=== PATIENT | female | born 1990 | race Caucasian/White ===

== ENCOUNTER 2018-07-09 11:25 | Inpatient (IN) | payer BC ==
--- NOTE | 2018-07-09 15:07 | US ---
Date of service: 07/09/2018 PROCEDURE: Obstetrical ultrasound examination and limited biophysical profile HISTORY: OB US / BPP COMPARISON: Not available TECHNIQUE: Transabdominal FINDINGS: The examination demonstrates a single live intrauterine gestation in cephalic presentation. The heart rate is 138 beats per minute. A normal anterior fundal placenta is identified. There is no evidence of placenta previa. The cervix is closed and measures 3.1 cm in length. A normal quantity of amniotic fluid is visualized. The JAYLEEN is 9.75 cm. biometry yields a gestational age of 30 weeks 5 days. The EFW is 3351 g. The PERLA by ultrasound is 07/18/2018. Limited review of anatomy demonstrates fluid distending the stomach and urinary bladder. A 4 chamber heart is identified. Two normal kidneys are demonstrated without evidence of hydronephrosis. A three-vessel umbilical cord is identified. The anterior abdominal wall is intact. The S/ D ratio is 2.6, within normal limits. Limited biophysical profile examination yields a score of 8 out of 8. IMPRESSION: Single live intrauterine gestation of approximately 30 weeks 5 days gestational age. Cephalic presentation. heart rate 138. EFW 3351 g. Biophysical profile score is 8 out of 8. No gross anatomic abnormality.
[2018-07-09] MEDS ORDERED: Lactated Ringer's 1,000 ML IV SCH (16:00)
[2018-07-09 16:18] LABS: BASO % 0.2 % (0.0-2.0); EOS # 0.5 K/uL (0.0-0.7); EOS % 6.2 % (0.0-4.0); HEMOGLOBIN 12.6 g/dL (11.0-16.0); LYMPH % 23.9 % (20.0-40.0); MEAN CELL VOLUME 90.1 fL (81.0-99.0); MEAN CORPUSCULAR HEMOGLOBIN 31.5 pg (27.0-31.0); MEAN CORPUSCULAR HGB CONC 34.9 g/dL (33.0-37.0); MEAN PLATELET VOLUME 9.7 fL (7.2-11.7); MONO # 0.9 K/uL (0.0-0.8); MONO % 10.8 % (0.0-10.0); NEUT % 58.9 % (50.0-75.0); NRBC % 0.1 % (0.0-2.0); RBC 4.01 Mil/uL (3.80-5.20); RED CELL DISTRIBUTION WIDTH 15.1 % (11.5-14.5); WHITE BLOOD COUNT 8.5 K/uL (4.8-10.8)
[2018-07-09 16:26] LABS: ALB/GLOB RATIO 1.1 (1.0-2.1); ALBUMIN 3.6 g/dL (3.5-5.0); ALT/SGPT 20 U/L (9-52); AST/SGOT 21 U/L (14-36); BLOOD UREA NITROGEN 6 mg/dL (7-17); GFR AFRICAN-AMERICAN > 60; GFR NON-AFRICAN AMERICAN > 60
[2018-07-09] MEDS ORDERED: Nalbuphine HCL 10 mg/ml Ampule IVP PRN (16:48)
[2018-07-09] MEDS ORDERED: DiphenhydrAMINE 50 mg/ml Inj IVP PRN (16:50)
--- NOTE | 2018-07-09 22:04 | OBHP ---
Datetime: 07/09/2018 22:02 FHR - Baseline A Provider: 140 Membranes, Provider: Intact Contraction Comments Provider: irregular Vital Signs Provider: Reviewed; Within Normal Limits NICHD Variability Prov Fetus A: Moderate 6-25bpm NICHD Accel Fetus A IP Provider: 15X15 FHR Category Provider Fetus A: Category I NICHD Decel Fetus A IP Provider: None Dilatation, Provider: 1 Effacement, Provider: 30 Station, Provider: -3 Datetime: 07/09/2018 13:59 IP Adm Impression: Postterm, intrauterine ; No Active Labor; Intact Membranes IP Adm Impression Other: Decreasing JAYLEEN IP Admit Plan: Admit to unit; Initiate labor induction protocol IP Admit Plan Other: Cervical ripening (Annotations: Data stored by N on behalf of user) Admit Comment, IP Provider: Patient seen and examined at 1228 hours This is a private patient of Dr. Radha Davis 28 y.o. , LMP 10/23/17, PERLA 07/08/18, revised by RACHAEL santana 40w 1d referred for evaluation by Marshall LI due to post dates. (+) AFM; denies LOF, VB, Ctx. Preanatal care: Dr. Davis, patient denies any iss ues. 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 Denies h/o STIs, abnormal Pap PMH: denies PSH: denies NKDA Meds: PNV Soc Hx: denies tobacco, illicit drug or EtOH use. x 3 years. Unemployed Fam Hx: Mother alive 47. Father alive 55; both, no med issues. No known fam h/o cancer P.E.: as above. WD in NAD. Awake, alert, oriented to time, person and place. Pleasant and cooperat len. and her mother present. Assessment: 28 y.o. P0, 40w 1d. Not in labor. Category 1 tracing. Clinically stable. Plan: 1) OB USG/BPP 2) Observe Addendum: 1546 hours - OB ultrasound reviewed: JAYLEEN 9.75cm, Cephalic, fundal placenta, EFW 3351 grams This was discussed with Dr. Davis. Dr. Davis is concerned of decreasing JAYLEEN. To this end, she is recommending induction of labor and delivery. This was presented to the patient and her . The y were given the oportunity to discuss the issue amoungst themselves as well as the opportunity to sp eak wt Dr. Davis. Patient has decided to stay for induciton of labor and delivery. Assessment: 28 y.o. P0, 40w 1d, decreasing JAYLEEN for IOL. GBS (-). Category 1 tracing. It was D/W pa tient the following: cervical ripening, possible pitocin; pain medications. Patient expressed an unde rstanding and agrees. No questions offered. Clinically stable. Plan: 1) Rodrick 2) Regular diet x 1, then 3) NPO 4) IVFs 5) Continuous EFM 6) Admission labs 7) Cervidil 8) Pain meds, upon request 9) Anticipate vaginal delivery - as per and discussed with Dr. Davis Pelvic Type - PN: Adequate Extremities - PN: Normal Abdomen - PN: Normal Back - PN: Normal Breast - PN: Normal Lungs - PN: Normal Heart - PN: Normal Thyroid - PN: Normal Neurologic - PN: Normal HEENT - PN: Normal General - PN: Normal Weight - Estimated: 3170 Presentation-Admit: Vertex Comments, ACOG Physical Exam: Abdomen: Gravid. Soft. Non tender. Fundal height 38 cm All other systems reviewed and are negative (Annotations: Data stored by CPN on behalf of user) Gestation - Est Wks by US: 40w 1d IP Hx Assessment: The History has been Reviewed and is Current EGA AdmitDate IP: 40.1 IP Chief Complaint: evaluation Genitourinary Exam: Normal DTRs - PN: Not Done
--- NOTE | 2018-07-09 22:08 | OBPN ---
Datetime: 07/09/2018 22:02 IP Procedures Other: Placementof cervidil IP Progress Impression Other: Stable IP Procedures: Sterile Vag Exam IP Progress Plan: Continue present management; Cervical Ripening; Anticipate Vaginal Delivery Membranes, Provider: Intact Contraction Comments Provider: irregular FHR - Baseline A Provider: 140 Gestation - Est Wks by US: 40w 1d Presentation-Admit: Vertex IP Progress Note Comment: Patient examined at 2026 hours: S/P regular diet x 1. (+) AFM; denies Ctx, VB, LOF Cercidil placed in posterior vaginal vault without incident. Assessment: 28 y.o. P0, 40w 1d, IOL; cervidil placed. Category 1 tracing. Clinically stable. Plan: 1) as above. 2) observe 3) anticipate vaginal delivery Vital Signs Provider: Reviewed; Within Normal Limits NICHD Accel Fetus A IP Provider: 15X15 FHR Category Provider Fetus A: Category I NICHD Variability Prov Fetus A: Moderate 6-25bpm Dilatation, Provider: 1 Effacement, Provider: 30 Station, Provider: -3 NICHD Decel Fetus A IP Provider: None Datetime: 07/09/2018 13:59 Weight - Estimated: 3170
[2018-07-10] MEDS ORDERED: Oxytocin 30 UNIT 30 UNITS/500 ML BAG IV ONE ×2 (07:09→08:07)
--- NOTE | 2018-07-10 08:28 | OBPN ---
Datetime: 07/10/2018 08:23 IP Progress Impression: Normal progression of labor IP Progress Plan: Continue present management Membranes, Provider: Ruptured FHR - Baseline A Provider: 135 Gestation - Est Wks by US: 40.2 Presentation-Admit: Vertex IP Progress Note Comment: pt seen adn examiend s/p cerbidl with srom 5am, clear VSS VE: vtx SROM EMF: Cat I TOCO: q 5 min A/P @ 40.2 wks GA IOL for intraheptic cholestasis of prengancy s/p cervidl ptiocn per protocol cont toco an emf naalgie pirn FHR Category Provider Fetus A: Category I NICHD Variability Prov Fetus A: Moderate 6-25bpm Dilatation, Provider: 2 Effacement, Provider: 50 Station, Provider: -3 NICHD Decel Fetus A IP Provider: None
[2018-07-10] MEDS ORDERED: Bupivacaine HCl/FentaNYL Cit 100 ML EPI ONE (10:46)
[2018-07-10] MEDS ORDERED: Oxytocin 10 Units/ml Inj ONE (15:46)
[2018-07-10] MEDS ORDERED: Lidocaine 2% MPF (5 ml) Inj ONE (15:48)
--- NOTE | 2018-07-10 15:48 | OBPN ---
Datetime: 07/10/2018 15:41 IP Progress Impression: Normal progression of labor IP Progress Plan: Continue present management Membranes, Provider: Ruptured Contraction Comments Provider: q 5min FHR - Baseline A Provider: 135 Gestation - Est Wks by US: 40.2 IP Progress Note Comment: @40.2 wks GA co pressure s/p epidural VSS VE 10cm EFM cat one TOCO q 5 min A/P @40.2 wks GA fully dilated start pushing cont toco and efm anticipate FHR Category Provider Fetus A: Category I NICHD Variability Prov Fetus A: Moderate 6-25bpm Dilatation, Provider: 10 Effacement, Provider: 100 Station, Provider: 1
[2018-07-10] MEDS ORDERED: Oxycodone/Acetaminophen 5/325 mg Tab PO PRN (18:44)
[2018-07-10] MEDS ORDERED: ceFAZolin IV 2 gm in Dextrose 2 GM/50 ML BAG IVPB SCH (18:45)
--- NOTE | 2018-07-10 18:54 | OBDS ---
DELIVERY PERSONNEL Delivery Doctor: Han Davis MD Geospatial Information Scientist: Ambrosio Rasmussen RN Anesthesiologist: han ray md MATERNAL INFORMATION Delivery Anesthesia: Epidural Estimated Blood Loss (ml): 500 Placenta Cultured: No Maternal Complications: None Provider Comments: pt was fully dilated and pushign, vrebal consent for epistomy givne by hayder aguirre ighakira mediolateral epsisotmy performed, aturmati, spontnaneous delivery of head, tight nuchal cord not ed x 1 reduced atruamtic, spontensou delivery of anteror followed by posterio shoulder followed by d eliery of lucita body. both oral and nasal passages of lucita baby were bubl suctioned. ubmical cord clmped and cut. baby handed to mother on abdomen with rn assistance. Cord blood collected and sent x 2. s pontaneous delivery of intact placenta with membranes. Fundus firm, good hemostiasis, second degree peirenal lacation with right medial lateral epsitomy reapised with 2-0 and 3-0 chormic. no complicat ions Live femlae ifnat agpars 9,9 ebl 500ml weight of 6lbs 8 ounces LABOR SUMMARY EDC: 07/08/2018 00:00 No. Babies in Womb: 1 Attempted: No Labor Anesthesia: Epidural LABOR INFORMATION Reason for Induction: Postterm; Other Reason for Induction Other: decreased AF Onset of Labor: 07/10/2018 11:21 Complete Dilatation: 07/10/2018 14:57 Cervical Ripening Agents: Cervidil Oxytocin: Augmentation Group B Beta Strep: Negative Steroids Given: None Reason Steroids Not Administered: Not Applicable MEMBRANES Membranes Rupture Method: Spontaneous Rupture of Membranes: 07/10/2018 02:15 Length of Rupture (hrs): 15.93 Amniotic Fluid Color: Clear Amniotic Fluid Amount: Moderate Amniotic Fluid Odor: Normal STAGES OF LABOR Stage 1 hrs: 3 Stage 1 min: 36 Stage 2 hrs: 3 Stage 2 min: 14 Stage 3 hrs: 0 Stage 3 min: 9 Total Time in Labor hrs: 6 Total Time in Labor min: 59 BABY A INFORMATION Infant Delivery Date/Time: 07/10/2018 18:11 Method of Delivery: Vaginal Born in Route : No : N/A Forceps: N/A Vacuum Extraction: N/A Shoulder Dystocia : No SHOULDER DYSTOCIA BABY A Delivery Date/Time: 07/10/2018 18:11 PRESENTATION/POSITION BABY A Presentation: Cephalic Cephalic Presentation: Vertex Vertex Position: Right Occipital Anterior Breech Presentation: N/A PLACENTA INFORMATION BABY A Placenta Delivery Time : 07/10/2018 18:20 Placenta Method of Delivery: Expressed Placenta Status: Delivered SCORES BABY A Heart Rate 1 min: >100 bpm Resp Effort 1 min: Good Cry Reflex Irritability 1 min: Cough or Sneeze or Pulls Away Muscle Tone 1 min: Active Motion Color 1 min: Body [place], Extremities Blue Resuscitation Effort 1 min: Tactile Stimulation SCORE 1 MIN: 9 Heart Rate 5 min: >100 bpm Resp Effort 5 min: Good Cry Reflex Irritability 5 min: Cough or Sneeze or Pulls Away Muscle Tone 5 min: Active Motion Color 5 min: Body [place], Extremities Blue Resuscitation Effort 5 min: Tactile Stimulation SCORE 5 MIN: 9 INFORMATION BABY A Gestational Age at Delivery: 40.2 Gestational Status: Post-term Infant Outcome : Liveborn Condition : Stable Sex: Female IDENTIFICATION/MEDS BABY A ID Band Number: [id number] Sensor Applied: Yes Sensor Number: [id number] WEIGHT/LENGTH BABY A Birthweight (gms): 2945 Infant Weight (lb): 6 Weight (oz): 8 Infant Length Inches: 19.50 Length cms: 49.5 CORD INFORMATION BABY A No. Cord Vessels: 3 Nuchal Cord : Around Neck x1, Tight Nuchal Cord Other: n/a True Knot: n/a Cord Blood Taken: Yes Banking/Donate Info: n/a Infant Suction: Mouth; Nose ASSESSMENT BABY A Complications: None Physical Findings at Delivery: Within Normal Limits Respirations: Appears Normal Manager Dental/ALS Called : No Infant Care By: charlie gill Transferred To: Remains with Mother
[2018-07-11 01:09] LABS: BASO % 0.1 % (0.0-2.0); EOS % 0.2 % (0.0-4.0); HEMOGLOBIN 9.8 g/dL (11.0-16.0); LYMPH # 1.9 K/uL (1.0-4.3); LYMPH % 13.4 % (20.0-40.0); MEAN CELL VOLUME 89.4 fL (81.0-99.0); MEAN CORPUSCULAR HEMOGLOBIN 31.3 pg (27.0-31.0); MEAN PLATELET VOLUME 9.9 fL (7.2-11.7); MONO # 1.2 K/uL (0.0-0.8); MONO % 8.3 % (0.0-10.0); NRBC % 0.1 % (0.0-2.0); RBC 3.14 Mil/uL (3.80-5.20); RED CELL DISTRIBUTION WIDTH 15.1 % (11.5-14.5)
[2018-07-11 07:35] LABS: BASO # 0.1 K/uL (0.0-0.2); BASO % 0.4 % (0.0-2.0); EOS # 0.1 K/uL (0.0-0.7); EOS % 0.9 % (0.0-4.0); HEMOGLOBIN 9.7 g/dL (11.0-16.0); LYMPH # 2.6 K/uL (1.0-4.3); MEAN CELL VOLUME 90.7 fL (81.0-99.0); MEAN CORPUSCULAR HEMOGLOBIN 30.9 pg (27.0-31.0); MONO # 1.3 K/uL (0.0-0.8); MONO % 8.9 % (0.0-10.0); NEUT # 10.2 K/uL (1.8-7.0); NEUT % 71.8 % (50.0-75.0); RBC 3.16 Mil/uL (3.80-5.20); RED CELL DISTRIBUTION WIDTH 15.2 % (11.5-14.5); WHITE BLOOD COUNT 14.2 K/uL (4.8-10.8)
--- NOTE | 2018-07-11 07:58 | OBPPN ---
Datetime: 07/11/2018 07:53 PP Pain Prov: Within normal limits PP Nausea Prov: Denies PP Flatus Prov: Yes PP BM Prov: No PP Breasts Prov: Normal PP Heart Prov: Normal PP Lungs Prov: Normal PP Abdomen/Uterus Prov: Normal PP Lochia Prov: Normal PP Vulva/Perineum Prov: Normal PP CVA Tenderness Prov: Normal PP Extremities Prov: Normal PP C/S Incision Prov: Not Applicable PP Progress Prov: Normal PP Impression Prov: Normal progression PP Plan Prov: Continue present management PP Progress Note Prov: Pt seen and examiend reprots pain contorlled, pt voiding, passinfg. flauts, v aignal packign removed, dnies any fever, chills, nasue, vomitng, cp, sob, breast feeding VSS PE GEN NAD AA OX 3 RESP: CTAB?l CVS: RRR, +S1/S2 ABD: Soft, NT, ND, +BS FUNDUS: FIrm, at levle of umcilsu VE: epistiso site c/d/i healign well EX:T negative hoams' sgin, no calf tendnere A/P s/p SNVD PPD #1` f/u am cbc pain amnente encoaurge breast feeidgn and ambaut dc in am Vital Signs Provider PP: Reviewed; Within Normal Limits
--- NOTE | 2018-07-11 07:58 | OBDCSUM ---
Datetime: 07/11/2018 07:56 Discharged to, Provider: Home Follow up at, Provider: Dr Davis Disch Instr Activity: Normal activity Disch Instr Diet: Regular Discharge Instructions, Provider: Routine instructions given Discharge Diagnosis, Provider: Term Delivered Discharge Time: 07/12/2018 11:00 Follow up in weeks, Provider: 6 weeks Disch Referrals: None Contraception discussed, Prov: Yes Disch Activity Restrictions: No sexual activity; Nothing in vagina - [place], tampons, douche Discharge Comment, Provider: dc in am Contraception after Delivery: Not Planning to Use
[2018-07-11] MEDS: Multiple Vitamins Tab PO SCH (09:05)
[2018-07-12 00:34] VITALS: PULSE 88
[2018-07-12 09:11] VITALS: BP 109/66; RESP 18; TEMP 98.4; O2SAT 100
[2018-07-12] MEDS: Multiple Vitamins Tab PO SCH (09:11)
--- NOTE | 2018-07-12 22:46 | OBPPN ---
Datetime: 07/12/2018 22:37 PP Pain Prov: Within normal limits PP Nausea Prov: Denies PP Flatus Prov: Yes PP BM Prov: Yes PP Breasts Prov: Normal PP Heart Prov: Normal PP Lungs Prov: Normal PP Abdomen/Uterus Prov: Normal PP Lochia Prov: Normal PP CVA Tenderness Prov: Normal PP Extremities Prov: Normal PP C/S Incision Prov: Not Applicable PP Progress Prov: Normal PP Comments Phys Exam Prov: Abdomen: (+) BS. Soft. Fundus - contracted; firm, mobile, non tender. Mi nimal locia rubra. Extremities: no calf tenderness All other systems reviewed and are negative PP Impression Prov: Normal progression PP Plan Prov: Discharge PP Progress Note Prov: Patient received in bed, room 459; seen at approximately 1400 hours. Breastf eeding. Ambulating and voiding without difficulty. Denies dizziness, lightheadedness, chest pain, pal pitation or shortness of breath. P.E.: as above. WD in NAD. Awake, alert, oriented to time, person and place. Pleasant and cooperat len. and her mother present - H/H, PPD#1, 9.8/ 28.1; today, 9.7/28.6 Assessment: PPD#2, 28 y.o. P1, S/P . Afebrile, vital sgns table. H/H stable; patient is asympto matic and hemodynamically stable. Clinically stable. Plan: 1) Discharge home 2) See full discharge instructions. Vital Signs Provider PP: Reviewed; Within Normal Limits
== END 2018-07-12 16:45 | disposition home or self-care (01) | DRG 775 ==
LOC: C.EROB 11:25 → C.4D 15:58 → C.4M 07-10 20:15
PROVIDERS: ADMIT Obstetrics & Gynecology; ATTEND Obstetrics & Gynecology
PROC: 10E0XZZ Delivery of Products of Conception, External Approach (ICD-10-PCS; principal; 2018-07-10)
PROC: 0KQM0ZZ Repair Perineum Muscle, Open Approach (ICD-10-PCS; 2018-07-10)
PROC: 3E0P7VZ Introduction of Hormone into Female Reproductive, Via Natural or Artificial Opening (ICD-10-PCS; 2018-07-10)
DX: O48.0 Post-term pregnancy (principal); O69.1XX0 Labor and delivery complicated by cord around neck, with compression, not applicable or unspecified; O41.8X30 Other specified disorders of amniotic fluid and membranes, third trimester, not applicable or unspecified; O70.1 Second degree perineal laceration during delivery; Z3A.40 40 weeks gestation of pregnancy; Z37.0 Single live birth